=== PATIENT | female | born 1955 | race African-American/Black ===

== ENCOUNTER 2018-04-15 15:50 | Emergency (ER) | payer OTHER ==
[~2018-04-15] VITALS: Ht 149.9 cm; Wt 117.9 kg
[~2018-04-15 15:50] MED LIST: ALBUTEROL SULF8.5 GM INH; AMOXICILLIN500 MG ORAL; QVAR7.3 GM INH; TRAMADOL HCL50 MG ORAL
[2018-04-15] MEDS ORDERED: HYDROCHLOROTHIA25 MG ORAL (16:03)
--- NOTE | 2018-04-15 16:04 | NUR ---
ED Nurse Note: patient was wheeled into the ED, coming from home, a/o x4, c/o flu like symptoms since this morning. patient has fever 100.9 F oral in the ER,
--- NOTE | 2018-04-15 16:14 | Emergency Room Report ---
History of Present Illness General Chief Complaint: Fever Source: Patient (Skylar Maza) Present Illness HPI 63-year-old female presents to the emergency department complaining of cough, wheezing and fever since this a.m. Patient reports history of asthma/COPD and states that she normally takes inhaled steroid medications. Patient reports that she has been caring for her who is currently admitted for influenza. Patient reports fatigue and body aches as well. Patient reports chills. Patient reports that she can feel/here wheezing, and talking or exertion Will increase her symptoms of cough. She states she has not received this year's flu vaccination.Denies CP, Palpitations, LOC, AMS, dizziness, Changes in Vision, Sensation, paresthesias, or a sudden severe headache. (Skylar Maza) Allergies: Uncoded Allergies: PENACILIIN (Allergy, Unknown, 03/29/15) Patient History Past Medical History: see triage record, asthma, COPD Past Surgical History: none Pertinent Family History: none Now: No Reviewed Nursing Documentation: PMH: Agreed; PSxH: Agreed (Skylar Maza) Nursing Documentation-PMH Past Medical History: No History, Except For Hx Hypertension: Yes Hx Asthma: Yes (Skylar Maza) Review of Systems All Other Systems: negative except mentioned in HPI (Skylar Maza) Physical Exam Vital Signs Date Time Temp Pulse Resp B/P (MAP) Pulse Ox O2 Delivery O2 Flow Rate FiO2 04/15/18 15:55 100.9 86 20 155/88 91 Room Air Sp02 EP Interpretation: reviewed, normal General Appearance: no apparent distress, alert, GCS 15, non-toxic, mild distress Head: normocephalic, atraumatic Eyes: bilateral eye normal inspection, bilateral eye PERRL ENT: hearing grossly normal, normal voice Neck: full range of motion Respiratory: chest non-tender, lungs clear, speaking full sentences, wheezing Cardiovascular #1: regular rate, rhythm, no edema Gastrointestinal: non tender, soft Musculoskeletal: back normal, gait/station normal, normal range of motion, non- tender Neurologic: alert, oriented x3, responsive, motor strength/tone normal, sensory intact, speech normal, grossly normal Psychiatric: judgement/insight normal Skin: normal color, no rash, warm/dry, well hydrated Lymphatic: no adenopathy (Skylar Maza) Medical Decision Making PA Attestation Dr. beaver is my supervising Physician whom patient management has been discussed with. (Skylar Maza) Medicare Attestation The history of Callie Pyle has been reviewed and management options for her have been examined and discussed by Alejo Rucker. I have personally examined and interviewed the patient. (Alejo Rucker MD) Diagnostic Impression: Primary Impression: Influenza A with pneumonia ER Course 63-year-old female presents to the emergency department complaining of cough, wheezing and fever since this a.m. Patient reports history of asthma/COPD and states that she normally takes inhaled steroid medications. Patient reports that she has been caring for her who is currently admitted for influenza. Patient reports fatigue and body aches as well. Patient reports chills. Patient reports that she can feel/here wheezing, and talking or exertion Will increase her symptoms of cough. She states she has not received this year's flu vaccination.Denies CP, Palpitations, LOC, AMS, dizziness, Changes in Vision, Sensation, paresthesias, or a sudden severe headache. Ddx considered but are not limited to URI, pneumonia, PE, strep pharyngitis, meningitis. Vital signs: Pt. is febrile, the remaining VS are WNL other than mildlly reduced O2 Sat. H&PE are most consistent with URI- no meningeal signs, oropharynx is not involved, no evidence of bacterial infection at this time. ORDERS: none required at this time, the diagnosis is clinical ED INTERVENTIONS: -Pt. given O2 via NC. -Albuterol Nebs x3 -Prednisone PO ---RE-Eval- lungs CTA -Pt. presents with most likely viral syndrome with sprains her to influenza. Due to patient's history of COPD and being advanced age as patient is a candidate for oral antibiotics as well. -I do not identify an emergent condition at this time. With current presentation , pt. is stable for close outpatient follow up and conservative treatment. D/ w pt. to return promptly to ED with worsening or new symptoms.- Pt. verbalizes' understanding and agreement with proposed treatment plan.proposed treatment plan. DISCHARGE: At this time pt. is stable for d/c to home. Will provide printed patient care instructions, and any necessary prescriptions. Care plan and follow up instructions have been discussed with the patient prior to discharge. (Skylar Maza) Chest X-Ray Diagnostic Results Chest X-Ray Diagnostic Results : Chest X-Ray Ordered: Yes # of Views/Limited/Complete: 1 View Indication: Shortness of Breath EP Interpretation: Yes SANDRA Xray: Interpretation reviewed, by supervising MD, and agrees with findings. Interpretation: no consolidation, no effusion, no pneumothorax, other - Hazy appearance, questionable infiltrates Impression: Other - abnormal Electronically Signed by: Skylar Maza PA-C (Skylar Maza) Last Vital Signs Date Time Temp Pulse Resp B/P (MAP) Pulse Ox O2 Delivery O2 Flow Rate FiO2 04/15/18 15:55 100.9 86 20 155/88 91 Room Air Status: improved (Skylar Maza) Disposition: HOME, SELF-CARE Condition: Stable Scripts Prednisone* (PREDNISONE*) 20 Mg Tablet 40 MG ORAL DAILY for 5 Days, #10 TAB Prov: Skylar Maza 04/15/18 Acetaminophen* (TYLENOL EXTRA STRENGTH*) 500 Mg Tablet 500 MG ORAL Q6H PRN for Mild Pain/Temp > 100.5, #20 TAB 0 Refills Prov: Skylar Maza 04/15/18 Codeine/Promethazine Hcl* (PROMETHAZINE-CODEINE SYRUP*) 118 Ml Syrup 5 ML ORAL Q6H PRN for For Cough, #120 ML 0 Refills Prov: Skylar Maza 04/15/18 Levofloxacin* (LEVAQUIN*) 750 Mg Tablet 750 MG ORAL DAILY for 7 Days, #7 TAB Prov: Skylar Maza 04/15/18 Oseltamivir Phosphate (Tamiflu) 75 Mg Capsule 75 MG ORAL TWICE A DAY for 5 Days, #10 CAP Prov: Skylar Maza 04/15/18 Albuterol Sulfate* (ALBUTEROL SULFATE MDI*) 8.5 Gm Hfa.aer.ad 2 PUFF INH Q3H, #1 INH 0 Refills Prov: Skylar Maza 04/15/18 Patient Instructions: Influenza, Adult, [id number] Additional Instructions: Take medications as directed. Follow up with a Primary Care Provider in 3-5 days, even if your symptoms have resolved. --Please review list of primary care clinics, if you do not already have a primary care provider Return sooner to ED if new symptoms occur, or current symptoms become worse. Do not drink alcohol, drive, or operate heavy machinery while taking Cough Syrup as this may cause drowsiness. - Please note that this Emergency Department Report was dictated using [employer]Dat[employer] inspector technology software, occasionally this can lead to erroneous entry secondary to interpretation by the dictation equipment. Skylar Maza Apr 15, 2018 16:14 Alejo Rucker MD Apr 18, 2018 20:53
--- NOTE | 2018-04-15 16:40 | Diagnostic Imaging Report ---
Indication: Shortness of breath Technique: One view of the chest Comparison: none Findings: Body habitus limits evaluation. Patient is rotated to the left. There is equivocal mild interstitial congestion. No focal airspace consolidation. The pleural spaces are grossly clear. The heart size is upper limits of normal There is prominence to the right pulmonary hilum Impression: Equivocal mild interstitial congestion. Correlate with clinical findings Prominent right pulmonary hilum. Probably exaggerated by patient rotation, but follow-up radiographs and/or CT should be considered
[2018-04-15] MEDS: Albuterol ud Inhalation HHN SCH ×3 (16:45→17:09)
[2018-04-15 16:54] VITALS: BP 155/88
[2018-04-15] MEDS ORDERED: ALBUTEROL SULF8.5 GM INH (17:13)
[2018-04-15] MEDS ORDERED: TYLENOL EXTRA500 MG ORAL (17:13)
[2018-04-15] MEDS ORDERED: TAMIFLU75 MG ORAL (17:13)
[2018-04-15] MEDS ORDERED: LEVAQUIN750 MG ORAL (17:13)
[2018-04-15] MEDS ORDERED: PROMETHAZINE-C118 M1 ORAL (17:13)
[2018-04-15] MEDS ORDERED: Oseltamivir 75mg cap ORAL ONE (17:15)
[2018-04-15] MEDS ORDERED: PREDNISONE20 MG ORAL (17:35)
[2018-04-15 18:00] VITALS: BP 148/87
--- NOTE | 2018-04-15 18:00 | NUR ---
ED Nurse Note: pt cleared to be d/c per ER provider, pt discharge/aftercare instruction provided w/ prescription, pt education done via discussion and handout, pt advised to follow up with pcp or return to ed if sx worsen or new sx develop, pt verbalized understanding and agrees with plan. pt reports relief after breathing tx, vss, ambulatory w/ steady gait, resp even and unlabored on RA, airway intact. all belongings left with pt, wristband removed.
== END 2018-04-15 18:00 | disposition home or self-care (01) ==
LOC: EMR 16:35
DX: J10.1 Influenza due to other identified influenza virus with other respiratory manifestations (principal); J18.9 Pneumonia, unspecified organism; I10 Essential (primary) hypertension; J45.909 Unspecified asthma, uncomplicated
CPT/HCPCS: 71045; 94640; 99284; J7512